=== PATIENT | female | born 2000 | race Caucasian/White ===

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

== ENCOUNTER → 2020-06-07 15:38 | Outpatient (BNVA) | payer OTHER, SELFPAY | PROVIDERS: Family Provider Family Medicine; PCP Family Medicine; Visit Provider Emergency Medicine | DX: Z32.00 Encounter for pregnancy test, result unknown (principal); R05 Cough; F17.200 Nicotine dependence, unspecified, uncomplicated | CPT/HCPCS: 81025 ==

== ENCOUNTER → 2020-07-24 14:15 | Outpatient (BNVA) | payer OTHER, SELFPAY | PROVIDERS: Family Provider Family Medicine; PCP Family Medicine; Visit Provider Obstetrics & Gynecology | DX: Z34.01 Encounter for supervision of normal first pregnancy, first trimester (principal) | CPT/HCPCS: 80307; 84315; 85025; 86592; 86762; 86803; 86850; 86870; 86900; 87086; 87340; 87806 ==

== ENCOUNTER → 2020-08-07 16:10 | Outpatient (BNVA) | payer OTHER, SELFPAY | PROVIDERS: Family Provider Family Medicine; PCP Family Medicine; Visit Provider Obstetrics & Gynecology | DX: Z34.01 Encounter for supervision of normal first pregnancy, first trimester (principal); Z34.90 Encounter for supervision of normal pregnancy, unspecified, unspecified trimester; R76.8 Other specified abnormal immunological findings in serum | CPT/HCPCS: 81000; 87491; 87591 ==

== ENCOUNTER → 2020-11-14 15:29 | Outpatient (BNVA) | payer OTHER, SELFPAY | PROVIDERS: Family Provider Family Medicine; PCP Family Medicine; Visit Provider Obstetrics & Gynecology | DX: Z34.02 Encounter for supervision of normal first pregnancy, second trimester (principal) | CPT/HCPCS: 82950; 84315; 85025 ==

== ENCOUNTER → 2021-01-02 13:25 | Outpatient (BNVA) | payer OTHER, SELFPAY | PROVIDERS: Family Provider Family Medicine; PCP Family Medicine; Visit Provider Obstetrics & Gynecology | DX: Z34.02 Encounter for supervision of normal first pregnancy, second trimester (principal) | CPT/HCPCS: 84315; 87081 ==

== ENCOUNTER → 2021-01-10 14:55 | Outpatient (BNVA) | payer OTHER, SELFPAY | PROVIDERS: Family Provider Family Medicine; PCP Family Medicine; Visit Provider Obstetrics & Gynecology | DX: Z34.90 Encounter for supervision of normal pregnancy, unspecified, unspecified trimester (principal) | CPT/HCPCS: 84315 ==

== ENCOUNTER → 2021-01-30 15:45 | Outpatient (BNVA) | payer OTHER, SELFPAY | PROVIDERS: Family Provider Family Medicine; PCP Family Medicine; Visit Provider Obstetrics & Gynecology | DX: Z34.90 Encounter for supervision of normal pregnancy, unspecified, unspecified trimester (principal); R76.8 Other specified abnormal immunological findings in serum | CPT/HCPCS: 84315; 87635 ==

== ENCOUNTER 2021-02-11 14:40 | Inpatient (IN) | payer OTHER, SELFPAY ==
[2021-02-11] VITALS (12 sets, daily range): BP systolic 108–132; BP diastolic 56–80; PULSE 70–98; RESP 15–18; TEMP 36.9–37; BMI 25.8
[2021-02-11] MEDS: miSOPROStol 100 mcg tablet 25 MCG VAGINAL (16:05)
[2021-02-11 16:17] LABS: Basophils % 0.4 %; Eosinophils # 0.1 10^3/uL (0.0-0.8); Eosinophils % 1.3 %; Hematocrit 33.4 % (37.0-47.0); Hemoglobin 10.8 g/dL (11.5-15.3); Lymphocytes # 1.8 10^3/uL (1.5-6.5); Lymphocytes % 17.5 %; Mean Corpuscular HGB Conc 32.3 g/dL (30.0-36.0); Mean Corpuscular Hemoglobin 26.2 pg (28.0-34.0); Mean Corpuscular Volume 81.1 fl (81-99); Mean Platelet Volume 13.2 fL (7.4-10.4); Monocytes # 0.7 10^3/uL (0.2-0.9); Neutrophils # 7.69 10^3/uL (1.8-8.0); Neutrophils % 72.9 %; Nucleated Red Blood Cells % 0 %; Platelet Count 220 10^3/cmm (130-400); Red Blood Count 4.12 10^6/uL (4.1-5.3); Red Cell Distribution Width 12.7 % (12.1-15.1); White Blood Count 10.5 10^3/uL (4.5-13.0)
[2021-02-11 17:38] LABS: Slide Review Slide Review Perform
[2021-02-11] MEDS: dextrose 5%-lactated ringers 1,000 ML 125 ML IV (23:07)
[2021-02-11] MEDS: oxytocin 30 UNIT/500 ML BAG IV (23:07)
[2021-02-11] MEDS: lactated ringers 1,000 ML 999 ML IV (23:48)
[2021-02-12] VITALS (234 sets, daily range): BP systolic 100–175; BP diastolic 48–98; PULSE 66–164; RESP 15–18; TEMP 36.3–37.5; O2SAT 89–100
--- NOTE | 2021-02-12 00:18 | PC.NURSE ---
Patient educated on pain relief options of IV fentanyl or epidural. Patient states that she does not want anything for pain at this time.
--- NOTE | 2021-02-12 01:14 | P.ANESASSM_ITS ---
Pre-Anesthetic Assessment Pre-Anesthetic Assessment: Height/Weight: Height 1.73 m Weight 77.111 kg Temp Pulse Resp BP 98.6 F 95 17 129/74 02/11/21 23:00 02/12/21 00:56 02/11/21 23:00 02/12/21 00:56 Preop Diagnosis: labor pain Proposed Procedure: epidural Familial anesthetic complications: none Was Beta Aleida taken within 24 hours: N/A Was Clonidine taken within 24 hours: N/A Social: Social History: No alcohol and No tobacco Exam: Pre-Anes Outpt Exam: alert, oriented x 3, clear to auscultation bilaterally and regular rate & rhythm Airway: Submandibular: WNL Cervical ROM: WNL MP: 2 Dentition: Full Pulmonary: Pulmonary: None reported CV/HEM: CV/HEM: Anemia : : None reported Hepatic: Hepatic: None reported GI: GI: GERD Metabolic: Metabolic: None reported Musc/skel: Musc/skel: None reported Neuropsych: Neuropsych: None reported Anesthetic Plan: ASA status: 2 Anesthesia: Regional (specify below) Risk of > 500 ml blood loss (7ml/kg in children): No Meds/Allergies Current Medications: Current Medications Generic Name Dose Route Start Last Admin Trade Name Freq PRN Reason Stop Dose Admin Dextrose/Lactated Ringer's 1,000 mls @ 125 m ls/hr 02/11/21 15:45 02/12/21 00:35 Dextrose 5%-Lact ated Ringers IV 0 mls/hr .Q8H RYLAN Infusion Oxytocin 30 unit in 500 ml s @ 1 mls/hr 02/11/21 20:18 02/11/21 23:27 Pitocin IV 0 milliunit/min .Q24H PRN 0 mls/hr labor induction Titration Protocol 1 MILLIUNIT/MIN PFSH Anesthesia PFSH: Medical History No pertinent past medical history neghx: htn,dm,thyroid,dvt/pe PCP: None Surgical History No pertinent past surgical history Family History Denies family history of Colon cancer Ovarian cancer Diabetes Heart disease Hypercholesteremia Breast cancer Hypertension Uterine cancer Thyroid disease Stroke Social History Smoking and tobacco status: former smoker Alcohol intake: never Lives independently: Yes History of recent travel: No Female Reproductive History: Date of last menstrual period: 07/14/19 G ravida: 1 Data Anesthesia CBC & Chem 7: 02/11/21 15:55 Other Labs: Laboratory Results - last 48 hr 02/11/21 15:55 WBC 10.5 RBC 4.12 Hgb 10.8 L Hct 33.4 L MCV 81.1 MCH 26.2 L MCHC 32.3 RDW 12.7 Plt Count 220 MPV 13.2 H Neut % (Auto) 72.9 Lymph % (Auto) 17.5 [place] % (Auto) 7.0 Eos % (Auto) 1.3 Baso % (Auto) 0.4 Neut # (Auto) 7.69 Lymph # (Auto) 1.8 [place] # (Auto) 0.7 Eos # (Auto) 0.1 Baso # (Auto) 0.0 Nucleated RBC % (auto) 0 Nucleated RBCs # 0.0 Cardiac Studies: No Data to Display
--- NOTE | 2021-02-12 01:43 | P.ANES_ITS ---
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, vitals taken during procedure using OBIX system and satisfactory throughout, patient admits to decrease pain, report of procedure to OB RN Epidural: Time Out Performed: Yes Consents Signed: Procedure Consent Consent: requested by attending/covering physician, from patient, risks and benefits reviewed and patient agrees to proceed Lumbar Level: L3-L4 Epidural position: sitting Epidural procedure: sterile prep of area, 1% lidocaine to numb the area (3 mL), 18 g needle, negative for paresthesia passed, neg for paresthesia, test dose given, 1.5% xylocaine 1:200k epi (5 mL), 0.2% Ropivacaine bolus ml (5 mL), placed PCEA, no systemic response, sterile dressing applied, L.U.D. no apparent complications and 0.2% Ropiavacaine @ mls/hr (13 mL/hr)
[2021-02-12] MEDS: dextrose 5%-lactated ringers 1,000 ML 125 ML IV (07:50)
--- NOTE | 2021-02-12 08:23 | PM.MISC ---
Miscellaneous Note Purpose of Documentation: Epidural bolused 5mls 2% lido and 100mcg of fent.
--- NOTE | 2021-02-12 08:41 | PM.OPHPUD ---
Labor & Delivery H&P Update Date of Procedure: February 12, 2021 Date H&P Performed: 02/06/21 H&P update information: I have reviewed H&P completed within last 30 days, I have examined patient prior to procedure and No changes to prior documentation Admission Diagnosis: at 41 weeks Preop diagnosis: induction for post dates
--- NOTE | 2021-02-12 13:11 | PM.MISC ---
Miscellaneous Note Purpose of Documentation: Epidural bolused 5mls of 0.2% rop and 100mcg fent
[2021-02-12] MEDS: miSOPROStol 200 mcg Tablet 800 MCG PR (14:21)
--- NOTE | 2021-02-12 14:43 | P.PCNOB_ITS ---
Delivery Note: Date of delivery: February 12, 2021 Pre-delivery diagnoses: iup at 41 weeks 5 days Post-delivery diagnoses: same Procedure: Op report anesthesia: Epidural Delivering Physician: rachel Estimated blood loss (mL): 100 Findings: term male in the cephalic presentation Pre-Delivery Course: The patient was admitted for induction for post dates. She was given two doses of cytotec and then labored on her own. She had complete cervical dilation and began pushing Delivery: The patient had complete cervical dilation and began to push. The head delivered in the RADAMES position over an intact perineum under epidural anesthesia. The nose and mouth were bulb suctioned. The shoulders and body delivered atraumatically. The baby was placed onto the mother's abdomen. The cord was clamped and cut. Cord blood was obtained. The placenta delivered spontaneously. It was inspected and found to be intact. Inspection of the perineum revealed a midline vaginal laceration which extended up and into the left periurethral area. This was repaired in 2 separate sutures. A running suture in the vaginal area and interrupted suture in the periurethral area. A estimated blood loss 100 mL. Apgars on baby were 8 at 1 minute and 9 at 5 minutes. Weight of baby is 8 pounds 15 ounces. Mother and baby were stable post delivery. Coding Level of Care Code Acute Data Integrity Analyst for Parmjit Hernandez
[2021-02-12] MEDS: ondansetron 2 mg/ML SDV 2 mL 4 MG IVP (14:48)
--- NOTE | 2021-02-12 16:51 | ANE.PACU2 ---
Inpatient post-anesthesia follow up: Airway intact: Yes Vital signs: Temperature 99.2 F Pulse Rate 101 Respiratory Rate 17 Blood Pressure 131/70 Pulse Oximetry 99 Oxygen Delivery Me thod Room Air Oxygen Flow Rate Fraction of Inspir ed Oxygen Hydration adequate: Yes Nausea and vomiting: No Pain level: 2 Mental status: Baseline
[2021-02-12] MEDS: ibuprofen 800 mg tablet PO (17:43)
[2021-02-13 03:03] LABS: Hematocrit 30.3 % (37.0-47.0); Hemoglobin 9.6 g/dL (11.5-15.3); Mean Corpuscular HGB Conc 31.7 g/dL (30.0-36.0); Mean Corpuscular Hemoglobin 26.3 pg (28.0-34.0); Platelet Count 186 10^3/cmm (130-400); Red Blood Count 3.65 10^6/uL (4.1-5.3); Red Cell Distribution Width 12.9 % (12.1-15.1); White Blood Count 18.1 10^3/uL (4.5-13.0)
[2021-02-13 04:30] VITALS: BP 131/82; PULSE 87; RESP 16
[2021-02-13] MEDS: benzocaine-menthol 78 gm Canister 1 SPRAY TOPICAL (04:50)
--- NOTE | 2021-02-13 08:02 | PM.DCS ---
Discharge Providers Date of Admission: 02/11/21 14:40 Date of Discharge: February 13, 2021 Attending Provider at Admission: Mela Waldrop MD Attending Provider at Discharge: Mela Waldrop MD Primary Care Provider: Janna Curran MD Diagnoses at Discharge Discharge Diagnosis (1) state: Status: Acute Reason for Visit Reason for Visit: DELIVERY Hospital Course Hospital Course The patient was admitted for induction for post dates. She had spontaneous delivery of a term male . She requested discharge on PPD #1 Physical Exam Narrative: EXAM NARRATIVE: doing well this morning. no concerns or complaints. Const: COMMON NORMALS: no acute distress, average body habitus, patient oriented x3, no limitations, healthy appearing, alert and well nourished GENERAL APPEARANCE: cooperative, comfortable, well kempt and well developed ORIENTATION/CONSCIOUSNESS: Yes awake, Yes oriented to person, Yes oriented to place and Yes oriented to time Resp: COMMON NORMALS: normal respiratory effort EFFORT & INSPECTION: Yes able to speak in complete sentences GI: COMMON NORMALS: Soft to palpation and non-tender PALPATION: Yes Soft to palpation Extremity: COMMON NORMALS: no clubbing, cyanosis or edema and no calf tenderness Neuro: COMMON NORMALS: patient oriented x3 SENSORIUM/ORIENTATION: Yes alert, Yes oriented to person, Yes oriented to place and Yes oriented to time Psych: APPEARANCE: Yes well kempt Urinary Catheter Management^: Stevens Latex Free: Cath Placed During This Visit: yes, but has since been removed by the nurse Reason for Continuing Indwelling Catheter: Required Immobilization for Trauma or Surgery or Anesthesia Urinary Catheter Date of Insertion: 02/12/21 Urinary Catheter Time of Insertion: 02:20 Date Urinary Catheter Removed: 02/12/21 Time Urinary Catheter Discontinued: 13:50 Discharge Data Data Completed and Pending: Labs from last 24 hours 02/13/21 02:45 WBC 18.1 H RBC 3.65 L Hgb 9.6 L Hct 30.3 L MCV 83.0 MCH 26.3 L MCHC 31.7 RDW 12.9 Plt Count 186 MPV 13.0 H Vitals: Last Vital Signs Temp 97.4 F L 02/12/21 20:11 Pulse 87 02/13/21 04:30 Resp 16 02/13/21 04:30 BP 131/82 02/13/21 04:30 Pulse Ox 99 02/12/21 13:50 Discharge Plan Discharge Patient Disposition: Home Condition: Stable Discharge Orders: Discharge Order (Routine); Ordered 02/13/21 Ordered By: Mela Waldrop Patient Instructions: Depression (DC), Expression, Collection and Storage of Breast Milk (DC), Preeclampsia and Eclampsia After Delivery (GEN), OB Discharge Report, OB Food/Drug Interaction Guide, Opioid Safety, OB Home Care, OB Vaginal Deliveries - [facility], Abnormal Bleeding Discharge Attestations Time Spent in Discharge Care*: less than 30 min Quality Metrics Clinical Quality Measures During this hospital stay, did patient experience: None Coding Level of Care Code Acute Chg FW DC note Diagnoses state Z39.2
[2021-02-13 11:45] VITALS: BP 112/63; PULSE 68; RESP 16; TEMP 36.7; O2SAT 97
[2021-02-13] MEDS: prenatal vitamin Capsule 1 CAP PO (11:50)
[2021-02-13] MEDS: ibuprofen 800 mg tablet PO ×2 (11:50→15:13)
[2021-02-13 17:10] VITALS: BP 124/74; PULSE 60; RESP 16; O2SAT 100
== END 2021-02-13 17:40 | disposition home or self-care (01) | DRG 806 ==
PROVIDERS: Admitting Provider Obstetrics & Gynecology; PCP Family Medicine; Visit Provider Obstetrics & Gynecology
DX: O48.0 Post-term pregnancy (principal); O71.4 Obstetric high vaginal laceration alone; Z37.0 Single live birth; Z3A.41 41 weeks gestation of pregnancy
CPT/HCPCS: 36415; 51702; 59025; 59409; 85025; 85027; 96374; 96376; 98960; 99211; J2405; J2795; J3010

== ENCOUNTER → 2021-04-14 09:30 | Outpatient (BNVA) | payer OTHER, SELFPAY | PROVIDERS: PCP Family Medicine; Visit Provider Obstetrics & Gynecology | DX: Z12.4 Encounter for screening for malignant neoplasm of cervix (principal) | CPT/HCPCS: 88175 ==

== ENCOUNTER → 2023-01-04 10:27 | Outpatient (BNVA) | payer OTHER, SELFPAY | PROVIDERS: PCP Family Medicine; Visit Provider Nurse Practitioner Family | DX: R05.9 Cough, unspecified (principal); R68.89 Other general symptoms and signs; J22 Unspecified acute lower respiratory infection; B96.89 Other specified bacterial agents as the cause of diseases classified elsewhere | CPT/HCPCS: 87400; 87426 ==

== ENCOUNTER → 2023-07-30 15:36 | Outpatient (BNVA) | payer OTHER, SELFPAY | PROVIDERS: PCP Family Medicine; Visit Provider Emergency Medicine | DX: B34.9 Viral infection, unspecified (principal); J02.9 Acute pharyngitis, unspecified | CPT/HCPCS: 87071; 87400; 87426; 87880 ==

== ENCOUNTER → 2023-12-09 09:40 | Outpatient (BNVA) | payer OTHER, SELFPAY | PROVIDERS: PCP Family Medicine; Visit Provider Family Medicine | DX: Z12.4 Encounter for screening for malignant neoplasm of cervix (principal) | CPT/HCPCS: 88175 ==